=== PATIENT | female | born 1990 | race Caucasian/White ===

== ENCOUNTER 2020-05-19 13:33 | Emergency (ER) | payer OTHER ==
[~2020-05-19] VITALS: Ht 154.9 cm; Wt 77.6 kg
[2020-05-19] MEDS ORDERED: VENTOLIN HFA18 GM (15:21)
[2020-05-19] MEDS ORDERED: ADDERALL 10 MG10 MG PO (15:21)
[2020-05-19] MEDS ORDERED: SEROQUEL100 MG PO (15:21)
[2020-05-19] MEDS ORDERED: NORCO 5-325 TA1 EACH PO (16:01)
[2020-05-19] MEDS ORDERED: CRUTCH1 EACH MISC (16:01)
== END 2020-05-19 16:12 | disposition home or self-care (01) ==
LOC: ED 13:33
DX: S93.402A Sprain of unspecified ligament of left ankle, initial encounter (principal); F90.9 Attention-deficit hyperactivity disorder, unspecified type; Z87.891 Personal history of nicotine dependence; Z88.5 Allergy status to narcotic agent; Z79.899 Other long term (current) drug therapy; X50.9XXA Other and unspecified overexertion or strenuous movements or postures, initial encounter
CPT/HCPCS: 73610; 73630; 99283-25